=== PATIENT | female | born 1970 | race Caucasian/White ===

== ENCOUNTER → 2016-09-07 | Outpatient (CLI) | payer MEDICARE, BC ==
[~2016-09-07] MED LIST: ACIFEX; ACIPHEX20 MG PO; AMBIEN5 MG PO; ASPIRIN 81M81 MG/TA2 PO; ASPIRIN E.C. 8181 MG PO; BACTRIM DS 8001 TAB PO; BUSPIRONE; CARAFATE 1GM1 G PO; CARBAMAZEPINE200 MG PO; DIABETA 2.5MG2.5 MG PO; GLUCOPHAGE XR500 M1 PO; HCTZ 25MG TAB25 MG PO; HCTZ 25MG25 MG PO; KLONOPIN 1MG1 MG PO; LAMOTRIGINE25 M1 PO; LEXAPRO20 MG PO; LORTAB 5/500 501 TAB PO; LUNESTA2 MG PO; METFORMIN500 MG PO; METOPROLOL SUC100 M2 PO; METOPROLOL25 MG PO; NAPROSYN375 MG PO; NEXIUM40 MG PO; NO HOME MEDICATIONS; NORCO 325 MG-51 TAB PO; PRILOTC PO; RISPERDAL 0.5M0.5 MG PO; SEROQUEL100 MG PO; SEROQUEL200 MG PO; TEGRETOL 2200 MG/TA1 PO; TOPROL XL100 MG PO; TRILEPTAL150 MG PO; TRILEPTAL300 MG PO; WELLBUTRIN XL150 MG PO
== END ==
LOC: BHSO 07:55
DX: F31.81 Bipolar II disorder (principal)

== ENCOUNTER → 2016-11-02 | Outpatient (CLI) | payer MEDICARE, BC | LOC: BHSO 08:59 | DX: F31.81 Bipolar II disorder (principal) ==

== ENCOUNTER → 2017-01-04 | Outpatient (CLI) | payer MEDICARE, BC | LOC: BHSO 08:56 | DX: F31.81 Bipolar II disorder (principal) ==

== ENCOUNTER → 2017-11-25 | Outpatient (CLI) | payer MEDICARE, BC | LOC: BHSO 14:08 | DX: F31.81 Bipolar II disorder (principal) | CPT/HCPCS: G0463 ==

== ENCOUNTER → 2018-02-23 | Outpatient (CLI) | payer MEDICARE, BC | LOC: BHSO 14:03 | DX: F31.81 Bipolar II disorder (principal) | CPT/HCPCS: G0463 ==

== ENCOUNTER → 2018-11-28 | Outpatient (CLI) | payer MEDICARE, BC | LOC: BHSO 09:50 | DX: F31.81 Bipolar II disorder (principal) | CPT/HCPCS: G0463 ==

== ENCOUNTER 2019-07-30 08:38 | Inpatient (IN) | payer MEDICARE, BC ==
[~2019-07-30] VITALS: Ht 162.6 cm; Wt 77.1 kg
[2019-07-30] VITALS (7 sets, daily range): BP systolic 118–167; BP diastolic 63–104; PULSE 38–87; TEMP 97.8–98
[2019-07-30] MEDS ORDERED: GEODON60 MG PO (09:56)
[2019-07-30] MEDS ORDERED: ACIPHEX20 MG PO (09:57)
--- NOTE | 2019-07-30 10:00 | NUR ---
Pt arrived to room 311 via EMS at this time. She is ambulatory with a steady gait. A/O x4. Breathing is even and unlabored on RA. Pt denies SOB. She currently denies pain, chest pain or palpitations. Pt reports chest pain, and SOB are associated with longer periods of exertion. IV to [facility]. MRSA precautions in place d/t positive MRSA screen in [place]. POC discussed with patient who verbalizes understanding. She has no needs at this time. Call light within reach.
[2019-07-30 11:49] LABS: PARTIAL THROMBOPLASTIN TIME 41.1 SECONDS (26.0-37.0)
[2019-07-30 13:07] LABS: BASO % 0.4 % (0.0-2.0); EOS # 0.2 (0.0-0.7); EOS % 1.9 % (0-4.0); GRAN # 6.1 (1.4-6.5); GRAN % 66.7 % (42.2-75.2); HEMATOCRIT 40.4 % (37.0-47.0); HEMOGLOBIN 13.9 g/dl (12.5-16.0); LYMPH # 2.2 (1.2-3.4); LYMPH % 23.7 % (20.0-51.0); MEAN CELL VOLUME 95 fl (80.0-100.0); MEAN CORPUSCULAR HEMOGLOBIN 33 pg (27.0-31.0); MEAN CORPUSCULAR HGB CONC 34 g/dl (33.0-37.0); MEAN PLATELET VOLUME 9.8 fl (7.4-10.4); MONO # 0.6 (0.1-0.6); MONO % 6.5 % (1.7-9.3); PLATELET COUNT 271 K/mm3 (130-400); RED BLOOD COUNT 4.26 M/mm3 (4.10-5.30); REDCELL DISTRIBUTION WIDTH-CV 13.1 % (11.5-14.5)
[2019-07-30 13:19] LABS: CALCIUM 9.5 mg/dL (8.4-10.2); CREATININE, serum 0.62 (0.52-1.25); POTASSIUM 4.5 mmol/L (3.4-5.0)
--- NOTE | 2019-07-30 14:13 | NUR ---
Heart cath planned for today, pt noted to have Iodine allergy. Already received Prednisone PO. This RN contacting Dr Bolaños for further orders. Orders received for Benadryl 50mg PO now, Solumedrol 125mg IV now, and Pepcid 20mg IV now. Orders also to hold Heparin gtt at this time for procedure. This RN also notifying MD that pt already received Plavix and ASA 325mg this morning prior to transer per primary RN on Medical. All orders read back and verified with physician.
--- NOTE | 2019-07-30 15:00 | NUR ---
Pt down for heart cath at this time.
--- NOTE | 2019-07-30 15:31 | NUR ---
SEE MERGE DOCUMENTATION FOR MEDICATION ADMINISTRATION TIMES AND INTRA/POST PROCEDURE SEDATION ASSESSMENT. PRETREAT MEDS GIVEN FOR IODINE ALLERGY PER PHYSICIAN ORDER; SEE MAR. RIGHT RADIAL ACCESS PLANNED; BARBEAU TEST POSITIVE TO RIGHT WRIST.
--- NOTE | 2019-07-30 16:56 | NUR ---
Pt arrived back on the unit at this time. She is A/O. Pt currently denies any pain. Radial compression band on to R wrist. No bleeding or hematomas visualized. Pulse strong, cap refill present. POC discussed with patient who verbalizes understanding. No needs at this time. Call light within reach.
--- NOTE | 2019-07-30 17:53 | NUR ---
Plan to transfer discussed with patient who verbalizes understanding. Heparin restarted. Will continue to monitor.
--- NOTE | 2019-07-30 18:11 | NUR ---
Heparin drip stopped prior to patient's departure per protocol. Update given to EMS drivers. Pt left at this time.
--- NOTE | 2019-07-30 18:13 | NUR ---
Attempted to call report to [facility], no answer.
--- NOTE | 2019-07-30 18:41 | NUR ---
Report given to Riley DERAS.
== END 2019-07-30 18:10 | disposition short-term general hospital (02) | DRG 282 ==
LOC: MEDICAL 08:38
PROVIDERS: ADMIT Internal Medicine Cardiovascular Disease
PROC: 4A023N7 Measurement of Cardiac Sampling and Pressure, Left Heart, Percutaneous Approach (ICD-10-PCS; principal; 2019-07-30)
PROC: B2111ZZ Fluoroscopy of Multiple Coronary Arteries using Low Osmolar Contrast (ICD-10-PCS; 2019-07-30)
PROC: B2151ZZ Fluoroscopy of Left Heart using Low Osmolar Contrast (ICD-10-PCS; 2019-07-30)
DX: I21.4 Non-ST elevation (NSTEMI) myocardial infarction (principal); I25.119 Atherosclerotic heart disease of native coronary artery with unspecified angina pectoris; I10 Essential (primary) hypertension; E78.5 Hyperlipidemia, unspecified; E11.9 Type 2 diabetes mellitus without complications; E66.9 Obesity, unspecified; Z68.29 Body mass index [BMI] 29.0-29.9, adult; G47.33 Obstructive sleep apnea (adult) (pediatric); F31.9 Bipolar disorder, unspecified; F17.210 Nicotine dependence, cigarettes, uncomplicated; Z88.5 Allergy status to narcotic agent; Z88.8 Allergy status to other drugs, medicaments and biological substances
CPT/HCPCS: C1769; C1887; J1644; J2250; J2930; J3010; J7512; Q9967

== ENCOUNTER → 2020-03-18 | Outpatient (CLI) | payer MEDICARE, BC ==
[~2020-03-18] MED LIST changes: +GEODON60 MG PO
== END ==
LOC: BHSO 13:53
DX: F31.81 Bipolar II disorder (principal)
CPT/HCPCS: G0463